=== PATIENT | female | born 1995 | race Caucasian/White ===

== ENCOUNTER 2019-03-17 03:44 | Inpatient (IN) ==
[2019-03-17] MEDS ORDERED: KETOROLAC 15 MG/ML VIAL IV ONE (04:13)
[2019-03-17] MEDS ORDERED: ACETAMINOPHEN 325 MG TABLET PO ONE (04:14)
--- NOTE | 2019-03-17 04:17 | Emergency Department Note ---
Abdominal Pain HPI - General Chief Complaint: Abdominal Pain Stated Complaint: Lower Abd pain Time Seen by Provider: 03/17/19 04:12 Mode of arrival: ambulatory - History of Present Illness HPI Narrative: Patient tells me she has a tumor in the abdomen, which is about the size of an apple and which is pushing on the bladder. She's been trying to get medical care to take the tumor out, however, has been unable to see an FOREX TRADER surgeon to have the procedure done. She quotes financial reasons for this. Denies fevers, denies chills, denies nausea, vomiting, early this morning she was playing [employer] and she went outside to smoke a cigarette and on her way back in. She started experiencing worsening pain in the area of the pelvis were she's had chronic pain for the last year. She denies diarrhea. No fevers or chills. She's been in her usual state of health otherwise. She feels like the tumor might be growing, she does report urinary frequency. No history of trauma. She denies . Last normal menstrual period was one month ago. MD Complaint: abdominal pain - Related Data Home Medications Medication Instructions Recorded Confirmed busPIRone [Buspar] 10 mg PO BID 10/01/17 10/01/17 Previous Rx's Medication Instructions Recorded Doxycycline Hyclate [Vibramycin] 100 mg PO BID #20 cap 10/01/17 Allergies Allergy/AdvReac Type Severity Reaction Status Date / Time lactose AdvReac Intermediate Gastrointestinal Verified 03/17/19 03:51 Upset Review of Systems All systems ED: reviewed and negative except as stated. Constitutional: Denies: fever, chills Cardiovascular: Denies: chest pain Respiratory: Denies: shortness of breath Abdominal Pain PMH - Past Medical History Medical history: Reports: no medical history Surgical history ED: Reports: non-contributory FOREX TRADER history: Reports: other (unknown tumor on her uterus) Family history: Reports: no significant family history - Social History Smoking status: Current every day smoker Alcohol use: Reports: Recent Drug use: Reports: marijuana Physical Exam Limitations: no limitations General appearance: alert, in no apparent distress, other (she smiles and laughs spontaneously.) Head: atraumatic, normocephalic Eye: Present: normal appearance, PERRL, EOMI. Absent: scleral icterus ENT: Present: normal exam, normal oropharynx, mucous membranes moist, TM's normal bilaterally Neck: Present: normal inspection, full ROM, trachea midline. Absent: tenderness Chest: Present: normal inspection, symmetric chest wall rise Respiratory: Present: normal lung sounds bilaterally. Absent: respiratory distress Cardiovascular: Present: regular rate, normal rhythm, normal heart sounds Abdominal: Present: soft, tenderness, normal bowel sounds. Absent: distention, guarding, rebound, rigidity Abdominal tenderness: Present: suprapubic, moderate Extremities: Present: normal inspection, full ROM Back: Present: normal inspection. Absent: CVA tenderness (R), CVA tenderness (L) Neurological: Present: alert, oriented X3, CN II-XII intact. Absent: motor sensory deficit Psychiatric: Present: normal affect, normal mood Skin: Present: warm, dry, normal color Course - Reevaluation(s) Reevaluation #1: Radiology findings discussed with Dr. Ibarra, she does have a 9 cm tumor in the lower pelvis associated with bleeding as well as the possibility of torsion of one ovary. She is in a lot of pain at this time, is requesting more pain medication. The. She wishes to stay away from narcotics as there is a strong family history of addiction but does state that she wishes to have something for pain and I believe the risk for addiction is very low at this time given that she has acute pain. Dr. Gross contacted and she will be in to see and assess the patient. She will likely need emergency surgery to have this tumor removed as it appears to be bleeding and there certainly blood in the lower pelvis associated with this. Labs otherwise unremarkable. Urinalysis was negative. HCG was negative as well. She's had no prior pregnancies Vital Signs Temperature 99.3 F H 03/17/19 03:45 Pulse Rate 67 03/17/19 03:45 Respiratory Rate 16 03/17/19 03:45 Blood Pressure 99/74 03/17/19 03:45 Pulse Oximetry (%) 100 03/17/19 03:45 Temperature 99.3 F H 03/17/19 03:45 Pulse Rate 65 03/17/19 08:24 Respiratory Rate 16 03/17/19 03:45 Blood Pressure 83/53 03/17/19 08:30 Pulse Oximetry (%) 100 03/17/19 08:24 Abdominal Pain - MDM Narrative Medical decision making narrative: Impression is ovarian tumor associated with the possibility of torsion and bleeding - Lab Data Lab results reviewed: Yes I reviewed the patient's lab results. Result diagrams: 03/17/19 04:30 03/17/19 04:30 Lab Results 03/17/19 03/17/19 03/17/19 Range/Units 04:30 04:30 04:45 WBC 5.1 (4.5-11.0) K/mcL RBC 4.28 (4.00-5.20) M/mcL Hgb 12.9 (12.0-15.0) g/dL Hct 38.0 (36.0-48.0) % MCV 88.9 (80.0-100.0) fL MCH 30.1 (26.0-34.0) pg MCHC 33.9 (31.0-36.0) g/dL RDW 13.3 (11.5-14.5) % Plt Count 213 (140-440) K/mcL MPV 8.9 (7.4-10.4) fL Gran % 65.5 (38.0-78.0) % Lymph % (Auto) 24.4 (15.5-49.0) % [place] % (Auto) 9.4 (1.0-12.0) % Eos % (Auto) 0.4 (0.0-7.0) % Baso % (Auto) 0.3 (0.0-2.0) % Gran # 3.3 (1.8-8.0) K/mcL Lymph # (Auto) 1.2 L (1.5-4.8) K/mcL [place] # (Auto) 0.5 (0.1-0.9) K/mcL Eos # (Auto) 0 (0.0-0.7) K/mcL Baso # (Auto) 0 (0.0-0.3) K/mcL Sodium 142 (133-145) mmol/L Potassium 3.3 (3.3-5.1) mmol/L Chloride 105 (96-108) mmol/L Carbon Dioxide 25 (22-30) mmol/L Anion Gap 12.0 (8-16) BUN 7 (6-20) mg/dl Creatinine 0.6 (0.6-1.1) mg/dl GFR Calculation 127 Glucose 91 (70-105) mg/dL Calcium 9.2 (8.6-10.4) mg/dl Total Bilirubin 0.2 (0.0-1.0) mg/dL AST 11 (0-37) U/l ALT < 5 (0-40) U/l Alkaline Phosphatase 63 (39-117) U/L C-Reactive Protein < 0.3 (0.0-0.8) mg/dl Total Protein 7.5 (5.9-8.4) gm/dL Albumin 4.9 (3.2-5.2) gm/dL Globulin 2.6 (2.2-3.7) gm/dL Albumin/Globulin Ratio 1.9 (1.0-2.3) Urine Color Yellow Urine Appearance Clear Urine pH 6.0 (5.0-9.0) Ur Specific [place] 1.008 (1.000-1.035) Urine Protein Neg (NEG) mg/dL Urine Glucose (UA) Negative (NEG) mg/dL Urine Ketones Neg (NEG) mg/dL Urine Occult Blood 0.2 A (<0.03) mg/dL Urine Nitrate Neg (NEG) Urine Bilirubin Neg (NEG) mg/dL Urine Urobilinogen Neg (NEG) mg/dL Ur Leukocyte Esterase Neg (NEG) /uL Urine RBC 1 (0-1) /hpf Urine WBC 4 (0-4) /hpf Ur Squamous Epith Cells 2 (0-4) /hpf Urine Bacteria 0 (0) /hpf Hyaline Casts 18 H (0-2) /lpf Urine Mucus Many A (0) /hpf Ur Culture Indicated? No - Radiology Data Radiology results reviewed: Yes I reviewed the patient's radiology results. Disposition Pt seen by PATIENT RESOURCE SPECIALIST/PA only: No Clinical Impression: Pelvic neoplasm Disposition: Still a Patient Condition: Good Referrals: Anna Prado ARNP [Primary Care Provider] -
[2019-03-17] MEDS ORDERED: 0.9 % SODIUM CHLORIDE 1,000 ML IV ONE ×2 (04:38→19:02)
[2019-03-17 05:36] LABS: Basophils # (Auto) 0 K/mcL (0.0-0.3); Basophils % (Auto) 0.3 % (0.0-2.0); Eosinophils # (Auto) 0 K/mcL (0.0-0.7); Eosinophils % (Auto) 0.4 % (0.0-7.0); Granulocytes % (Auto) 65.5 % (38.0-78.0); Hemoglobin 12.9 g/dL (12.0-15.0); Lymphocytes # (Auto) 1.2 K/mcL (1.5-4.8); Lymphocytes % (Auto) 24.4 % (15.5-49.0); Mean Cell Volume 88.9 fL (80.0-100.0); Mean Corpuscular HGB Conc 33.9 g/dL (31.0-36.0); Mean Platelet Volume 8.9 fL (7.4-10.4); Monocytes # (Auto) 0.5 K/mcL (0.1-0.9); Monocytes % (Auto) 9.4 % (1.0-12.0); Platelet Count 213 K/mcL (140-440); RBC 4.28 M/mcL (4.00-5.20); Red Cell Distribution Width 13.3 % (11.5-14.5); WBC 5.1 K/mcL (4.5-11.0)
[2019-03-17 05:52] LABS: Appearance,Urine CLEAR; Bacteria,Urine 0 /hpf (0); Bilirubin,Urine NEG (NEG); Color,Urine YELLOW; Culture Indicated,Urine NO; Glucose,Urine (UA) NEGATIVE (NEG); Ketones,Urine NEG (NEG); Leukocyte Esterase,Urine NEG /uL (NEG); Mucus,Urine MANY /hpf (0); Nitrate,Urine NEG (NEG); Protein,Urine NEG (NEG); Specific Gravity,Urine 1.008 (1.000-1.035); Urine Blood 0.2 mg/dL (<0.03); Urine Hyaline Cast 18 /lpf (0-2); Urine RBC 1 /hpf (0-1); Urine Squamous Epithelial Cell 2 /hpf (0-4); Urine WBC 4 /hpf (0-4); Urobilinogen,Urine NEG (NEG)
[2019-03-17 05:59] LABS: Chloride 105 mmol/L (96-108)
[2019-03-17 06:01] LABS: ALT/SGPT < 5 U/l (0-40); AST/SGOT 11 U/l (0-37); Albumin 4.9 gm/dL (3.2-5.2); Albumin/Globulin Ratio 1.9 (1.0-2.3); Alkaline Phosphatase 63 U/L (39-117); Bilirubin,Total 0.2 mg/dL (0.0-1.0); Blood Urea Nitrogen 7 mg/dl (6-20); C-Reactive Protein < 0.3 mg/dl (0.0-0.8); Calcium 9.2 mg/dl (8.6-10.4); Carbon Dioxide 25 mmol/L (22-30); Globulin 2.6 gm/dL (2.2-3.7); Glomerular Filtration Rate 127; Glucose 91 mg/dL (70-105)
[2019-03-17] MEDS ORDERED: ONDANSETRON 4 MG/2 ML VIAL IV ONE ×2 (09:00→11:05)
--- NOTE | 2019-03-17 09:11 | Ultrasound Report ---
CLINICAL INFORMATION: Patient has a known pelvic tumor. She now presents with severe bilateral pelvic pain TECHNIQUE: Transabdominal and pelvic ultrasound. Grayscale and color flow Doppler spectral imaging COMPARISON: Previous examination dated 06/12/2018 performed at [facility] FINDINGS: Uterus measures 7.7 x 2.5 x 3.9 cm. Uterus is anteflexed. Normal myometrium. No myometrial mass. Endometrium measures 9 mm. There is no endometrial fluid or mass. There is a large hyperechoic mass which is predominantly left-sided. This measures 9.9 x 7.5 x 11.5 cm. This measured 6.2 x 8.4 cm on the previous examination. Previous report describes calcification which is not well-visualized presently. It is not certain whether this mass has truly enlarged or this small interval change in size may be technically related. There is echogenic and heterogeneous material adjacent to this mass which extends to the right adnexal region. Right ovary measures 4.6 x 2.6 x 5.3 cm. There is no demonstrable blood flow within the right ovary. Torsion is possible. There is moderate to large hemoperitoneum with a hematocrit level. There is also a curvilinear structure with in the pelvic blood. Etiology is not certain. Patient has not had prior surgery and should not have foreign body. 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 More unusual solid tumors including fibroma are possible but centered much less likely. No normal left ovary is identified IMPRESSION: 1. Large homogeneously echogenic mass in the left adnexal region. 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 Moderate to large hemoperitoneum. Curvilinear structure within the pelvic blood is of uncertain etiology 3. Echogenic material surrounding the right ovary. No demonstrable blood flow with in the right ovary. Torsion is possible. 4. Normal left ovary is not identified. Interpreted and Authenticated by: Gallo Ibarra 03/17/19
[2019-03-17] MEDS: LACTATED RINGERS 1,000 ML IV SCH ×3 (09:29→20:28)
[2019-03-17] MEDS: HYDROmorphone 2 MG/ML VIAL IV PRN ×4 (09:29→19:32)
[2019-03-17] MEDS ORDERED: PHENYLEPHRINE 10 MG/ML VIAL IV ONE (11:05)
[2019-03-17] MEDS ORDERED: fentaNYL 100 MCG/2 ML VIAL IV ONE (11:05)
[2019-03-17] MEDS ORDERED: MIDAZOLAM 5 MG/5 ML VIAL IV ONE (11:05)
[2019-03-17] MEDS ORDERED: DEXAMETHASONE 10 MG/ML VIAL IV ONE (11:05)
[2019-03-17] MEDS ORDERED: LIDOCAINE HCL/PF 100 MG/5 ML SYRINGE IV ONE (11:05)
[2019-03-17] MEDS ORDERED: ROCURONIUM 10 MG/ML ML IV ONE (11:05)
[2019-03-17] MEDS ORDERED: ePHEDrine 50 MG/ML AMPUL IV ONE (11:05)
[2019-03-17] MEDS ORDERED: SUGAMMADEX SODIUM 200 MG/2 ML VIAL IV ONE (11:05)
[2019-03-17] MEDS ORDERED: PROPOFOL 200 MG/20 ML VIAL IV ONE (11:05)
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
[2019-03-17] MEDS ORDERED: 0.9 % SODIUM CHLORIDE 250 ML IV SCH (11:30)
[2019-03-17] MEDS ORDERED: FLUMAZENIL 0.1 MG/ML ML IV PRN (11:55)
[2019-03-17] MEDS ORDERED: PROMETHAZINE 25 MG/ML VIAL IM PRN (11:55)
[2019-03-17] MEDS ORDERED: ONDANSETRON 4 MG/2 ML VIAL IV PRN ×2 (11:55→13:49)
[2019-03-17] MEDS ORDERED: IPRATROPIUM/ALBUTEROL 3 ML AMPUL.NEB NEB PRN (11:55)
[2019-03-17] MEDS ORDERED: MEPERIDINE 50 MG/ML INJECTION IM PRN (11:55)
[2019-03-17] MEDS ORDERED: MEPERIDINE 25 MG/ML SYRINGE IV PRN (11:55)
[2019-03-17] MEDS ORDERED: PROMETHAZINE 25 MG/ML VIAL IV PRN (11:55)
[2019-03-17] MEDS ORDERED: NALOXONE HCL 0.4 MG/ML VIAL IV PRN (11:55)
[2019-03-17] MEDS ORDERED: LACTATED RINGERS 250 ML IV PRN (11:55)
[2019-03-17] MEDS ORDERED: BENZOCAINE/MENTHOL 1 LOZENGE PO PRN (11:55)
[2019-03-17] MEDS ORDERED: fentaNYL 100 MCG/2 ML VIAL IV PRN (11:55)
[2019-03-17] MEDS ORDERED: diphenhydrAMINE 50 MG/ML VIAL IV PRN (11:55)
[2019-03-17] MEDS ORDERED: LACTATED RINGERS 1,000 ML IV SCH (12:00)
[2019-03-17] MEDS ORDERED: BUPIVACAINE W/EPI 0.25% 50 ML VIAL IJ ONE (12:23)
[2019-03-17] MEDS ORDERED: ACETAMINOPHEN 1,000 MG/100 ML BOTTLE IV ONE (12:45)
[2019-03-17] MEDS ORDERED: KETOROLAC 30 MG/ML VIAL IV PRN (13:46)
[2019-03-17] MEDS: KETOROLAC 30 MG/ML VIAL IV SCH ×2 (13:50→18:26)
--- NOTE | 2019-03-17 13:56 | Brief Operative Note ---
Date of procedure: 03/17/19 Pre-op diagnosis: Large complex left ovarian mass, hemoperitoneum, possible torsed R ovary Post-op diagnosis: same (hemorrhagic cyst right ovary) Procedure: Laparoscopic evaluation, cauterization of hemorrhagic right ovarian cyst, left salpingoophorectomy, conversion to mini-laparotomy for excision of large mass, pelvic/abdominal lavage. Anesthesia: GETA (Toby Kwan, MADDIE) Findings: hemoperitoneum, Large dermoid cyst of left ovary containing sebum, hair, bone, bleeding cyst of right ovary. Normal appearing uterus and right tube and appendix. Surgeon: Fide Gross Printing Plate Setter: Ezio Bray Estimated blood loss (cc): 50 Specimens Removed/Pathology: other (Left ovary containing dermoid cyst and left tube) Condition: stable Disposition: PACU
[2019-03-17] MEDS ORDERED: GUM MASTIC/STORAX/MSAL/ALCOHOL 1 DOSE DROPERETTE TOPICAL ONE (14:01)
[2019-03-17 15:04] LABS: Basophils # (Auto) 0 K/mcL (0.0-0.3); Basophils % (Auto) 0 % (0.0-2.0); Eosinophils # (Auto) 0 K/mcL (0.0-0.7); Eosinophils % (Auto) 0 % (0.0-7.0); Granulocytes % (Auto) 95.5 % (38.0-78.0); Hematocrit 28.4 % (36.0-48.0); Hemoglobin 9.5 g/dL (12.0-15.0); Lymphocytes # (Auto) 0.3 K/mcL (1.5-4.8); Lymphocytes % (Auto) 3.1 % (15.5-49.0); Mean Cell Volume 89.5 fL (80.0-100.0); Mean Corpuscular HGB Conc 33.4 g/dL (31.0-36.0); Mean Platelet Volume 8.7 fL (7.4-10.4); Monocytes # (Auto) 0.1 K/mcL (0.1-0.9); Monocytes % (Auto) 1.4 % (1.0-12.0); Platelet Count 161 K/mcL (140-440); RBC 3.17 M/mcL (4.00-5.20); Red Cell Distribution Width 12.8 % (11.5-14.5); WBC 10.6 K/mcL (4.5-11.0)
[2019-03-17] MEDS: HYDROcodone/APAP 5/325MG TABLET PO PRN ×2 (16:40→21:02)
[2019-03-17 20:15] LABS: Hemoglobin 8.7 g/dL (12.0-15.0)
[2019-03-17] MEDS: SENNOSIDES/DOCUSATE SODIUM 1 TAB TABLET PO SCH (21:01)
[2019-03-18] MEDS: HYDROcodone/APAP 5/325MG TABLET PO PRN ×6 (00:05→20:46)
[2019-03-18] MEDS: KETOROLAC 30 MG/ML VIAL IV SCH (00:05)
[2019-03-18] MEDS: LACTATED RINGERS 1,000 ML IV SCH ×5 (02:34→22:17)
[2019-03-18 05:40] LABS: Basophils # (Auto) 0 K/mcL (0.0-0.3); Basophils % (Auto) 0 % (0.0-2.0); Eosinophils # (Auto) 0 K/mcL (0.0-0.7); Eosinophils % (Auto) 0 % (0.0-7.0); Granulocytes % (Auto) 88.4 % (38.0-78.0); Hematocrit 20.9 % (36.0-48.0); Lymphocytes # (Auto) 0.6 K/mcL (1.5-4.8); Lymphocytes % (Auto) 4.9 % (15.5-49.0); Mean Cell Volume 89.6 fL (80.0-100.0); Mean Corpuscular HGB Conc 33.4 g/dL (31.0-36.0); Mean Platelet Volume 9.1 fL (7.4-10.4); Monocytes # (Auto) 0.9 K/mcL (0.1-0.9); Monocytes % (Auto) 6.7 % (1.0-12.0); Platelet Count 142 K/mcL (140-440); RBC 2.33 M/mcL (4.00-5.20); Red Cell Distribution Width 13.2 % (11.5-14.5); WBC 13.1 K/mcL (4.5-11.0)
[2019-03-18] MEDS ORDERED: 0.9 % SODIUM CHLORIDE 250 ML IV SCH (06:00)
[2019-03-18] MEDS: HYDROmorphone 2 MG/ML VIAL IV PRN ×3 (06:57→15:08)
--- NOTE | 2019-03-18 07:19 | OB/GYN Progress Note ---
Assessment and Plan - Narrative A/P Narrative: Anemia due to acute blood loss prior to surgery but also question continued p.o. bleeding. Symptomatic with anemia. Will plan transfusion of 2 units of pRBC's and recheck hemogram to follow. Findings of large dermoid tumor on left and hemorrhagic right ovarian cyst discu ssed with patient both yesterday and today. Subjective - Subjective Patient information: Note initiated : 03/18/19 at 7:16 am Service Date, if different from initiated Date: [] Patient: Klaus Lizarraga 23 y/o F admitted on for Lower Abd pain. Chief Complaint: [] Dizziness, pain post op. Principal diagnosis: s/p laparoscopic LSO, mini-lap, cauterization of right ovarian hemorrhagic Interval history: Alert and oriented. Appears fairly comfortable. Reports pain more left sided. States pain not as bad as pre-op but still gets "spasms" when she tries to lie flat. Patient reports: voiding normally, dizzy ambulation, pain poorly controlled (rates pain 8 of 10. ) Objective - Vital Signs Latest vital signs: Vital Signs Temp Pulse Pulse Resp BP BP BP 03/18/19 04:13 98.3 F 60 12 75/40 76/47 03/17/19 23:26 98.2 F 77 18 88/51 03/17/19 20:25 82 84/51 03/17/19 19:55 110 H 69/44 03/17/19 19:25 107 H 74/46 03/17/19 17:56 91 H 88/56 03/17/19 16:41 75 83/51 03/17/19 16:30 62 82/44 03/17/19 16:00 75 83/38 03/17/19 15:45 71 87/52 03/17/19 15:30 66 93/47 03/17/19 15:12 64 83/51 03/17/19 15:00 71 90/53 03/17/19 14:23 99.1 F H 68 19 92/46 03/17/19 14:08 98.8 F 72 17 93/43 03/17/19 13:53 98.7 F 88 16 90/55 03/17/19 13:48 94 H 17 92/53 03/17/19 13:43 84 17 88/54 03/17/19 13:38 97.6 F 82 15 94/50 12/15/19 10:16 82/55 03/17/19 10:06 62 03/17/19 10:03 62 03/17/19 09:45 56 L 79/53 03/17/19 09:31 65 76/43 03/17/19 09:26 66 74/49 03/17/19 09:24 68 71/42 03/17/19 09:16 85/56 03/17/19 09:03 86/61 03/17/19 08:46 105/49 03/17/19 08:30 83/53 03/17/19 08:24 65 03/17/19 07:31 72/49 Pulse Ox 03/18/19 04:13 96 03/17/19 23:26 100 03/17/19 20:25 03/17/19 19:55 03/17/19 19:25 03/17/19 17:56 95 03/17/19 16:41 03/17/19 16:30 99 03/17/19 16:00 98 03/17/19 15:45 100 03/17/19 15:30 100 03/17/19 15:12 100 03/17/19 15:00 100 03/17/19 14:23 100 03/17/19 14:08 100 03/17/19 13:53 100 03/17/19 13:48 100 03/17/19 13:43 100 03/17/19 13:38 100 03/17/19 10:16 03/17/19 10:06 98 03/17/19 10:03 99 03/17/19 09:45 98 03/17/19 09:31 95 03/17/19 09:26 99 03/17/19 09:24 99 03/17/19 09:16 03/17/19 09:03 03/17/19 08:46 03/17/19 08:30 03/17/19 08:24 100 03/17/19 07:31 Intake and Output 03/17/19 03/18/19 03/18/19 21:59 05:59 13:59 Intake Total 2745 1655 Output Total 550 2275 300 Balance 8564 -590 -300 Intake: IV 2745 915 Sodium Chloride 0.9% 1,000 ml @ 1000 Wide Open IV BOLUS ONE Rx#: [id number] Lactated Ringers 1,000 ml @ 150 1645 915 mls/hr IV .Q6H40M [facility] Rx#: [id number] Oral 740 Output: Void Amount 550 2275 300 Other: Urine Appearance Clear Clear Clear Urine Color Dark Yellow Bright Yellow Bright Yellow Urine Odor Normal Weight 119 lb - Exam Lungs: bilateral: normal Chest: Normal S1, Normal S2 Extremities: Present: normal Abdomen: Present: soft, tenderness, other (tender. Bruising along left flank. Bandaids dry.) Bowel sounds: Present: Present x4 Incision OB: Present: normal, dry, intact - Labs Labs: Abnormal lab results 03/17/19 03/17/19 03/18/19 Range/Units 14:11 19:24 03:55 WBC 13.1 H (4.5-11.0) K/mcL RBC 3.17 L 2.33 L (4.00-5.20) M/mcL Hgb 9.5 L 8.7 L 7.0 L* (12.0-15.0) g/dL Hct 28.4 L 26.0 L 20.9 L* (36.0-48.0) % Gran % 95.5 H 88.4 H (38.0-78.0) % Lymph % (Auto) 3.1 L 4.9 L (15.5-49.0) % Gran # 10.1 H 11.6 H (1.8-8.0) K/mcL Lymph # (Auto) 0.3 L 0.6 L (1.5-4.8) K/mcL
--- NOTE | 2019-03-18 08:24 | Operative Note ---
DATE OF OPERATION: 03/17/2019 PREOPERATIVE DIAGNOSES: 1. Large left ovarian mass. 2. Suspected hemoperitoneum. 3. Possible torsed right ovary. POSTOPERATIVE DIAGNOSES: 1. Large dermoid cyst involving the left ovary. 2. Hemorrhagic right ovarian cyst. 3. Hemoperitoneum. SURGEON: Fide Gross MD VETERINARY MEDICINE DOCTOR: Ezio Bray MD Procedure: Laparoscopic LSO, cautery of hemorrhagic right ovarian cyst, evacuation of hemoperitoneum, mini-laparotomy for extraction of large ovarian tumor FINDINGS: An approximate 12 cm in size ovary with components containing sebum, hair and bone like structure on the left, and on the right normal appearing tubes, but an obvious cyst hemorrhagic cyst, which was actively oozing on the right ovary. Normal appearing right tube, normal appearing uterus, normal appearing appendix and a large amount of blood encountered upon entering the abdomen. DESCRIPTION: The patient was taken back to the operating room and placed under general endotracheal anesthesia by Toby Kwan CRNA. She was then placed in the dorsal lithotomy position and exam under anesthesia revealed a uterus which was retroflexed and displaced by a large palpable mass in the lower abdomen. She was prepped and draped in the usual sterile fashion for laparoscopic surgery. Quarter-percent Marcaine with epinephrine was injected below the umbilicus. A 5 mm vertical incision was made and the abdomen was entered with a Veress needle. After positive drop test, the abdomen was insufflated with 2 liters of CO2. Size 5 trocar and sheath placed into the abdomen followed by the laparoscope under direct visualization. Immediately visible was a large amount of blood in the pelvis. Secondary ports were obtained in the left lateral abdomen and the right lateral abdomen and eventually suprapubically to accommodate the 12 mm port. The pelvis was cleared of blood enough to adequately visualize the contents and it was apparent there was a steady oozing from the right ovary. This was cauterized. Attention was then turned to the left ovary containing the large cyst, which was quite heavy and continued to flap into the pelvis. The ovary, ovarian ligament and mesosalpinx were grasped, coagulated, and cut with the Derik instrument. This dissection was carried down to and across the proximal portion of the tube and specimen placed in the cul-de-sac. Next, an EndoCatch was placed. A large amount of time was used attempting to get the mass into the bag and because it was heavy, would continue to expose out of the bag. Attempts to decrease its volume by suctioning its contents were made. I immediately apparent was a large amount of sebum and some hair. Despite these efforts, this was unsuccessful and eventually decision was made to do a mini laparotomy in order to remove the specimen. In the meantime contents of the cyst had spilled into the pelvis. The two lateral ports were removed and a low small transverse incision approximately 6 cm in length was made suprapubically. This was carried down through the layers of subcutaneous fat and rectus sheath with cautery dissection. The peritoneum was elevated and the peritoneal cavity was entered sharply. The specimen was then brought up and out of this incision and passed off the operative field. Clearly there was at least a 4.5 cm area of calcified material within the mass in addition to the hair and sebum. The pelvis was then copiously irrigated. Peritoneum closed with a running stitch of 0 Polysorb. Fascia closed with a running locked stitch of 0 Polysorb. Skin closed with a subcuticular of 4-0 Monocryl and quarter-inch Steri-Strips. The laparoscopic port sites were closed with subcuticulars of 4-0 Monocryl and quarter-inch Steri-Strips. Estimated blood loss intraoperatively was 50 mL or less but hemoperitoneum was estimated at 400 mL. The patient was transported to the recovery room in satisfactory condition. Sponge, needle, and instrument counts were correct. Dong was draining clear urine at the end of the case. SAB:immanuel Job ID: [id number] Doc ID: [id number] Fide OROZCO
[2019-03-18] MEDS: SENNOSIDES/DOCUSATE SODIUM 1 TAB TABLET PO SCH ×2 (12:19→20:46)
[2019-03-18 14:09] LABS: Hematocrit 27.7 % (36.0-48.0); Hemoglobin 9.3 g/dL (12.0-15.0)
[2019-03-18 15:58] LABS: INR 1.3 (0.9-1.1); Prothrombin Time 15.9 sec (11.9-14.5)
[2019-03-19] MEDS: HYDROcodone/APAP 5/325MG TABLET PO PRN ×5 (00:21→23:17)
[2019-03-19] MEDS: LACTATED RINGERS 1,000 ML IV SCH ×5 (03:50→20:45)
[2019-03-19 06:23] LABS: Basophils # (Auto) 0 K/mcL (0.0-0.3); Basophils % (Auto) 0.4 % (0.0-2.0); Eosinophils # (Auto) 0 K/mcL (0.0-0.7); Eosinophils % (Auto) 0.4 % (0.0-7.0); Granulocytes % (Auto) 64.6 % (38.0-78.0); Hematocrit 30.2 % (36.0-48.0); Hemoglobin 9.9 g/dL (12.0-15.0); Lymphocytes # (Auto) 2.1 K/mcL (1.5-4.8); Lymphocytes % (Auto) 27.1 % (15.5-49.0); Mean Cell Volume 90.7 fL (80.0-100.0); Mean Corpuscular HGB Conc 32.8 g/dL (31.0-36.0); Mean Platelet Volume 9.3 fL (7.4-10.4); Monocytes # (Auto) 0.6 K/mcL (0.1-0.9); Monocytes % (Auto) 7.5 % (1.0-12.0); Platelet Count 124 K/mcL (140-440); RBC 3.33 M/mcL (4.00-5.20); Red Cell Distribution Width 14.7 % (11.5-14.5); WBC 7.6 K/mcL (4.5-11.0)
[2019-03-19] MEDS: HYDROmorphone 2 MG/ML VIAL IV PRN (06:55)
[2019-03-19 07:05] LABS: ALT/SGPT 18 U/l (0-40); AST/SGOT 37 U/l (0-37); Albumin 3.2 gm/dL (3.2-5.2); Albumin/Globulin Ratio 1.5 (1.0-2.3); Alkaline Phosphatase 50 U/L (39-117); Bilirubin,Total 0.3 mg/dL (0.0-1.0); Blood Urea Nitrogen 6 mg/dl (6-20); Calcium 8.6 mg/dl (8.6-10.4); Carbon Dioxide 21 mmol/L (22-30); Chloride 106 mmol/L (96-108); Globulin 2.1 gm/dL (2.2-3.7); Glomerular Filtration Rate 135; Glucose 91 mg/dL (70-105)
--- NOTE | 2019-03-19 09:00 | OB/GYN Progress Note ---
Assessment and Plan - Narrative A/P Narrative: Stable s/p operative management hemoperitoneum, large dermoid tumor of left ovary and hemorrhagic right ovarian cyst anemia due to acute blood loss. Do not suspect ongoing bleeding at this point. Home later today . P.O. instructions reviewed. Will recommend Fe supplement. Recommend f/u in 1.5 weeks. Subjective - Subjective Patient information: Note initiated : 03/19/19 at 8:58 am Service Date, if different from initiated Date: [] Patient: Klaus Lizarraga 23 y/o F admitted on 03/18/19 for Lower Abd pain. Chief Complaint: [POD 2] Pt feeling better today. Pain better managed with 2 tabs of [place]. Toradol held yesterday related to possibility of active bleeding and potential for return to OR. Hemogram stable this AM with Hb at 9.9. Feels her dizziness is more associated with the narcotics that she has been receiving. Good appetite this AM. +flatus. Voiding without difficulty. Objective - Vital Signs Latest vital signs: Vital Signs Temp Pulse Resp BP BP Pulse Ox 03/19/19 04:03 97.8 F 43 L 18 96/62 97 03/18/19 23:04 98.3 F 51 L 20 84/54 100 03/18/19 20:09 18 98 03/18/19 18:42 98.0 F 53 L 20 90/51 98 03/18/19 16:00 98.0 F 58 L 18 90/60 98 03/18/19 12:00 97.9 F 54 L 16 80/49 98 03/18/19 11:24 69 101/64 Intake and Output 03/18/19 03/19/19 03/19/19 21:59 05:59 13:59 Intake Total 1720 1027 Balance 1720 1027 Intake: IV 1000 927 Lactated Ringers 1,000 ml @ 150 1000 927 mls/hr IV .Q6H40M REPLACED [facility] Rx#: [id number] Oral 720 100 Other: Meal Dinner Percent of Meal Consumed 75% Urine Appearance Clear Urine Color Pale Urine Odor Normal # Voids 1 1 1 Weight 117 lb 12.8 oz - Exam Lungs: bilateral: normal Extremities: Present: normal Abdomen: Present: soft, tenderness (bruising and some edema left side extending into flank. Bandaids dry ) Bowel sounds: Present: Present x4 - Labs Labs: Abnormal lab results 03/18/19 03/18/19 03/19/19 Range/Units 13:12 14:55 04:48 RBC 3.33 L (4.00-5.20) M/mcL Hgb 9.3 L 9.9 L (12.0-15.0) g/dL Hct 27.7 L 30.2 L (36.0-48.0) % RDW 14.7 H (11.5-14.5) % Plt Count 124 L (140-440) K/mcL PT 15.9 H (11.9-14.5) sec INR 1.3 H (0.9-1.1) Carbon Dioxide (22-30) mmol/L Creatinine (0.6-1.1) mg/dl Total Protein (5.9-8.4) gm/dL Globulin (2.2-3.7) gm/dL 03/19/19 Range/Units 04:48 RBC (4.00-5.20) M/mcL Hgb (12.0-15.0) g/dL Hct (36.0-48.0) % RDW (11.5-14.5) % Plt Count (140-440) K/mcL PT (11.9-14.5) sec INR (0.9-1.1) Carbon Dioxide 21 L (22-30) mmol/L Creatinine 0.5 L (0.6-1.1) mg/dl Total Protein 5.3 L (5.9-8.4) gm/dL Globulin 2.1 L (2.2-3.7) gm/dL
[2019-03-19] MEDS: SENNOSIDES/DOCUSATE SODIUM 1 TAB TABLET PO SCH ×2 (14:46→19:56)
[2019-03-19] MEDS: IBUPROFEN 600 MG TABLET PO PRN (19:55)
[2019-03-20] MEDS: LACTATED RINGERS 1,000 ML IV SCH ×3 (02:05→15:56)
[2019-03-20] MEDS: IBUPROFEN 600 MG TABLET PO PRN ×3 (04:11→17:32)
[2019-03-20 07:13] LABS: Basophils # (Auto) 0 K/mcL (0.0-0.3); Basophils % (Auto) 0.5 % (0.0-2.0); Eosinophils # (Auto) 0.1 K/mcL (0.0-0.7); Eosinophils % (Auto) 2.4 % (0.0-7.0); Granulocytes % (Auto) 58.8 % (38.0-78.0); Hematocrit 28.1 % (36.0-48.0); Hemoglobin 9.2 g/dL (12.0-15.0); Lymphocytes # (Auto) 1.7 K/mcL (1.5-4.8); Lymphocytes % (Auto) 30.8 % (15.5-49.0); Mean Cell Volume 90.6 fL (80.0-100.0); Mean Corpuscular HGB Conc 32.8 g/dL (31.0-36.0); Mean Platelet Volume 9.5 fL (7.4-10.4); Monocytes # (Auto) 0.4 K/mcL (0.1-0.9); Monocytes % (Auto) 7.5 % (1.0-12.0); Platelet Count 130 K/mcL (140-440); WBC 5.6 K/mcL (4.5-11.0)
[2019-03-20] MEDS: HYDROcodone/APAP 5/325MG TABLET PO PRN ×3 (08:23→17:32)
[2019-03-20] MEDS ORDERED: FERROUS GLUCONATE 324 MG TABLET PO SCH (09:00)
[2019-03-20] MEDS: SENNOSIDES/DOCUSATE SODIUM 1 TAB TABLET PO SCH (10:09)
--- NOTE | 2019-03-20 10:22 | Surgical Pathology Report ---
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 - NO IMMATURE ELEMENTS OR MALIGNANCY IDENTIFIED. -- FALLOPIAN TUBE: NO DIAGNOSTIC ALTERATIONS. (RLF:junior) CLINICAL HISTORY Lower abdominal pain; left ovarian mass. GROSS DESCRIPTION Received in formalin labeled left ovarian mass, is a white to pink-fofana ovary with attached fallopian tube. The ovary measures 9.0 x 7.4 x 4 cm and weighs 116 grams. Sectioning reveals white to pink-fofana tissue and cystic regions with diameters ranging in size from 1.5 to 7 cm. The cysts are filled with thick, oily yellow-fofana material and hair. Near one end there is a 3 cm firm portion of white-fofana tissue. The fallopian tube is 6 cm long by up to 0.6 cm in diameter and has intact fimbriated end. Grossly no tubal lesions are identified. Clearing Inspector sections are submitted as follows: A1-A4 - sections of cyst penn; A5-A6 - additional ovary; A7 - section of firm region after decalcification; A8 - fallopian tube. (STS:junior) Electronically Signed by: Erma Nuñez M.D.
--- NOTE | 2019-03-20 18:47 | OB/GYN Progress Note ---
Assessment and Plan - Narrative A/P Narrative: STable post mini-lap/laparoscopic procedure Anemia: stable P: Home. Instructions reviewed. Subjective - Subjective Patient information: Note initiated : 03/20/19 at 6:45 pm Service Date, if different from initiated Date: [] Patient: Klaus Lizarraga 23 y/o F admitted on 03/18/19 for Lower Abd pain. Chief Complaint: [] Feeling better and feels ready to go home with the exception that she does not have a ride or anyone to check on her. Only feels dizzy in relationship to taking the narcotics. Was up to shower today. Tolerating diet. Is voiding. +flatus Objective - Vital Signs Latest vital signs: Vital Signs Temp Pulse Resp BP BP BP Pulse Ox 03/20/19 16:00 98.0 F 65 16 90/53 95 03/20/19 12:00 97.0 F 12 95/55 95 03/20/19 08:00 96.8 F L 62 12 91/61 96 03/20/19 07:19 12 97 03/20/19 04:11 97.8 F 45 L 12 86/50 97 03/19/19 23:04 98.2 F 61 12 91/56 97 03/19/19 19:46 16 03/19/19 19:22 98.5 F 64 12 86/53 98 Intake and Output 03/20/19 03/20/19 03/20/19 05:59 13:59 21:59 Intake Total 1325 1000 2000 Output Total 1950 1800 Balance -625 1000 200 Intake: IV 925 1000 1000 Lactated Ringers 1,000 ml @ 959 848 4383 1000 mls/hr IV .[id number] [facility] Rx#: [id number] Oral 400 1000 Output: Void Amount 1950 1800 Other: Meal Lunch Percent of Meal Consumed 100% Feeding Ability Independent Urine Appearance Clear Clear Clear Urine Color Pale Pale Bright Yellow Blood Tinged Urine Odor Normal Normal Normal Weight 117 lb 8 oz Patient Weight 03/21/19 05:59 Weight 117 lb 8 oz - Exam Abdomen: Present: soft, other (appropriately tender . Bandaids dry. Bruising left flank not progressing.) - Labs Labs: Abnormal lab results 03/20/19 Range/Units 04:49 RBC 3.10 L (4.00-5.20) M/mcL Hgb 9.2 L (12.0-15.0) g/dL Hct 28.1 L (36.0-48.0) % Plt Count 130 L (140-440) K/mcL
[2019-03-20] MEDS ORDERED: HYDROcodone/APAP (PP) 5/325MG TABLET (#4) PO ONE (20:47)
== END 2019-03-20 21:09 | disposition home or self-care (01) | DRG 742 ==
LOC: ED 03:44 → SUR 10:25 → ED 10:30 → MEDSUR 14:35
PROVIDERS: ADMIT Obstetrics & Gynecology; ATTEND Obstetrics & Gynecology